=== PATIENT | male | born 1945 | race Caucasian/White ===

== ENCOUNTER 2017-02-11 17:34 | Inpatient (IN) | payer OTHER ==
[~2017-02-11] VITALS: Ht 182.8 cm; Wt 96.0 kg
--- NOTE | ~2017-02-11 | CON ---
[place], [place] REPORT OF CONSULTATION NAME: [facility]J [facility]UNG [facility] [id number] UNIT #: [id number] ROOM: 519 DOCTOR: SOLE PARKS MD BIRTHDATE: [birth year] DOS: 02/12/2017 REQUESTING PHYSICIAN: Dr. Villarreal. REASON FOR CONSULTATION: Chest pain. ASSESSMENT: 1. Current presentation with left side chest pain for the past 3 days. 2. Similar complaint in January of last year. 3. Coronary artery disease, status post bypass surgery in October 2015 along with aortic valve replacement. 4. Hypertension. 5. Hyperlipidemia. 6. Cardiomyopathy. 7. COPD. 8. History of tobacco abuse. The patient quit in October of last year. PLAN: 1. Cycle cardiac enzymes. 2. Add Imdur 60 mg once a day. 3. The patient can be discharged home with early followup in our clinic within 1-2 weeks. 4. Call for any change in symptoms and then a stress test is recommended. HISTORY AND PHYSICAL: The patient is a pleasant 71-year-old gentleman well known to our group, was seen recently with Dr. Carranza in January following his surgery of aortic valve replacement along with bypass surgery. Apparently, the patient has been having off and on chest pain, left-sided, for the past 3 days. The pain is sharp, occasionally dull, nonradiating. No associated nausea, vomiting or diaphoresis. It can reach 2-3/10. No worsening with activity. It lasted all day. The patient still has some pain medicines, took it and it improved the pain. Never had any symptomatic palpitation. No associated dizziness, lightheadedness or near syncope. Overall, has been doing well. The patient is under a lot of stress due to some family issues at home (patient's had been recently diagnosed with cancer). The patient sleeps on 1 pillow with no reported PND, orthopnea or pedal edema. No reported snoring. No fever, no chills, no night sweats, maintained good appetite, no weight loss. Overall, had been doing quite well prior to that. No significant complaint of chest pain since he was seen by Dr. Carranza in January of last year. PAST MEDICAL HISTORY: As detailed in my assessment. SOCIAL HISTORY: The patient denies any current tobacco, alcohol or illicit drug abuse. FAMILY HISTORY: Not applicable in view of patient's age. CURRENT MEDICATIONS: Vitamin D, Mobic, lisinopril, folic acid and aspirin. [place], [place] REPORT OF CONSULTATION NAME: PJ YEUNG UNIT #: [id number] ROOM: [facility] DOCTOR: SOLE PARKS MD BIRTHDATE: [birth year] ALLERGIES: The patient has no known drug allergies. REVIEW OF SYSTEMS: The patient denies any current headache, diplopia or blurry vision. No fever, no chills, no night sweats. No abdominal pain, no bright red blood per rectum, no tarry stools. The patient admits to joint pain, but no muscular pain. No anxiety, occasional depression. No polyuria, no polydipsia. No skin rash. Review of other systems has been negative. PHYSICAL EXAMINATION: GENERAL: The patient is alert, oriented x3, quite pleasant. VITAL SIGNS: Blood pressure 169/89, heart rate 60, respiratory rate of 20, temperature 97.8. NECK: Good upstroke. No bruit. HEART: S1, S2 with no rub. CHEST AND BACK: No deformities. LUNGS: Clear to auscultation. No wheezing, no rales. ABDOMEN: Obese, soft, nontender, present bowel sounds. LOWER EXTREMITIES: Mild edema with faint distal pulses. NEUROLOGIC: Grossly nonfocal. SKIN: No significant rash. LABORATORY DATA: White count 6.5, hemoglobin 14.2. Potassium is 4.4, creatinine 1.4. Hemoglobin A1c 5.9. Negative CPK-MB and troponin. SOLE PARKS MD CM:CONSTR:REPORT OF CONSULTATION [id number] 02/14/17 2000 interface
[2017-02-11 17:34] VITALS: BP 188/86
[~2017-02-11 17:34] MED LIST: ANAPROX DS550 MG PO; ASPIRIN CHEWABL81 MG PO; ATENOLOL50 MG PO; BACTRIM DS 8001 TA1 PO; CILOSTAZOL100 MG PO; CIPRO250 MG PO; COREG12.5 M1 PO; COREG6.25 MG PO; CRESTOR20 MG PO; DOXYCYCLINE100 M3 PO; FENOFIBRATE160 MG PO; HYDROCODONE W/1 TA1 PO; LASIX20 MG PO; LISINOPRIL10 M1 PO; LISINOPRIL10 MG PO; LISINOPRIL20 MG PO; MELOXICAM15 MG PO; MOTRIN800 MG PO; Metformin Hydr500 MG PO; NATURE'S BLEND F1 MG PO; NEXIUM40 MG PO; NITROSTAT0.4 MG SL; NORCO 7.5-3251 EACH PO; OMEPRAZOLE20 MG PO; PROTONIX40 MG PO; SEPTRA DS 800 M1 TAB PO; SIMVASTATIN40 MG PO; VITAMIN D50000 UNIT PO; ZOCOR40 MG PO
[2017-02-11 17:59] LABS: BASO % 0.5 % (0.0-1.0); EOS # 0.4 10*3/uL (0.0-0.4); EOS % 4.5 % (1.0-4.0); HEMATOCRIT 43.4 % (42.0-52.0); HEMOGLOBIN 14.7 g/dl (14.0-18.0); LYMPH # 2.1 10*3/uL (1.3-4.4); LYMPH % 26.6 % (27.0-41.0); MEAN CELL VOLUME 90.8 fl (80.0-94.0); MEAN CORPUSCULAR HGB 30.8 pg (27.0-31.0); MEAN CORPUSCULAR HGB CONC 33.9 g/dl (33.0-37.0); MEAN PLATELET VOLUME 10.7 fl (9.6-12.3); MONO # 0.8 10*3/uL (0.1-1.0); MONO % 10.7 % (3.0-9.0); NEUT # 4.5 10*3/uL (2.3-7.9); NEUT % 57.3 % (47.0-73.0); PLATELET COUNT AUTOMATED 187 10*3/uL (130-400); RED BLOOD COUNT 4.78 10*6/uL (4.50-5.90); RED CELL DISTRI WIDTH 13.6 % (0-14.5); WHITE BLOOD COUNT 7.9 10*3/uL (4.8-10.8)
[2017-02-11 18:15] LABS: ALBUMIN 3.9 gm/dl (3.1-4.5); BILIRUBIN, TOTAL 0.6 mg/dl (0.2-1.0); MAGNESIUM 2.1 mg/dL (1.5-2.1); POTASSIUM 4.3 mmol/L (3.5-5.1); TOTAL PROTEIN 7.6 gm/dL (6.4-8.2)
[2017-02-11 18:16] LABS: TROPONIN I 0.017 ng/ml (<0.045)
[2017-02-11 18:46] VITALS: BP 177/87
[2017-02-11] MEDS ORDERED: ASPIRIN81 M1 PO (19:00)
[2017-02-11] MEDS ORDERED: CARVEDILOL6.25 MG PO (19:01)
[2017-02-11] MEDS ORDERED: BREO ELLIPTA 11 EACH IH (19:01)
[2017-02-11] MEDS ORDERED: CILOSTAZOL100 MG PO (19:02)
[2017-02-11] MEDS ORDERED: FENOFIBRATE160 MG PO (19:02)
[2017-02-11] MEDS ORDERED: LISINOPRIL20 MG PO (19:03)
[2017-02-11] MEDS ORDERED: NATURE'S BLEND F1 MG PO (19:03)
[2017-02-11] MEDS ORDERED: MOBIC15 MG PO (19:04)
[2017-02-11] MEDS ORDERED: PANTOPRAZOLE SO40 MG PO (19:04)
[2017-02-11] MEDS ORDERED: METFORMIN500 MG PO (19:04)
[2017-02-11] MEDS ORDERED: VITAMIN D50000 I3 PO (19:05)
[2017-02-11] MEDS ORDERED: ZOCOR40 MG PO (19:05)
[2017-02-11 19:24] VITALS: BP 144/76
[2017-02-11 19:45] VITALS: BP 170/86
[2017-02-11 20:00] VITALS: BP 170/86
[2017-02-12] VITALS: BP 120/64
[2017-02-12 01:47] LABS: CKMB 1.6 ng/ml (0.5-3.6)
[2017-02-12 06:13] LABS: CKMB 1.5 ng/ml (0.5-3.6)
[2017-02-12 06:14] LABS: HEMATOCRIT 43.1 % (42.0-52.0); HEMOGLOBIN 14.2 g/dl (14.0-18.0); MEAN CELL VOLUME 91.5 fl (80.0-94.0); MEAN CORPUSCULAR HGB 30.1 pg (27.0-31.0); MEAN CORPUSCULAR HGB CONC 32.9 g/dl (33.0-37.0); MEAN PLATELET VOLUME 11.4 fl (9.6-12.3); PLATELET COUNT AUTOMATED 176 10*3/uL (130-400); RED BLOOD COUNT 4.71 10*6/uL (4.50-5.90); RED CELL DISTRI WIDTH 13.7 % (0-14.5); WHITE BLOOD COUNT 6.5 10*3/uL (4.8-10.8)
[2017-02-12 06:31] LABS: FREE T4 1.15 ng/dl (0.76-1.46); MAGNESIUM 2.1 mg/dL (1.5-2.1); POTASSIUM 4.4 mmol/L (3.5-5.1)
[2017-02-12 06:39] LABS: THYROID STIM HORMONE (HS) 0.827 uIU/ml (0.358-4.75)
[2017-02-12 06:40] LABS: PROTHROMBIN TIME 10.9 SECONDS (9.0-12.4)
[2017-02-12 06:51] LABS: EOSINOPHIL # 0.6 10*3/uL (0-0.4); EOSINOPHILS 9 % (1-4); LYMPHOCYTE # 2.1 10*3/uL (1.3-4.4); MONOCYTE # 0.3 10*3/uL (0.1-1.0); NEUTROPHIL # 3.4 10*3/uL (2.3-7.9); NEUTROPHILS 53 % (47-73); TOTAL CELLS COUNTED 100 #CELLS
[2017-02-12 06:52] LABS: PLATELET SUFFICIENCY NORMAL (NORMAL)
[2017-02-12 07:20] LABS: HEMOGLOBIN A1c 5.9 % (4.8-5.6)
[2017-02-12 07:27] LABS: VITAMIN D, 25-HYDROXY 21.2 ng/mL (30-100)
[2017-02-12 07:31] LABS: FOLIC ACID > 24.00 ng/mL (>5.38)
[2017-02-12 08:00] VITALS: BP 169/89
[2017-02-12 12:18] LABS: CKMB 1.4 ng/ml (0.5-3.6)
[2017-02-12] MEDS ORDERED: IMDUR SA60 M1 PO (14:42)
== END 2017-02-12 16:08 | disposition home or self-care (01) | DRG 683 ==
LOC: ED 17:34 → EDHOLD 18:40 → 5E 19:12
PROVIDERS: Emergency Medicine; Internal Medicine
DX: N17.0 Acute kidney failure with tubular necrosis (principal); I50.32 Chronic diastolic (congestive) heart failure; I11.0 Hypertensive heart disease with heart failure; E11.9 Type 2 diabetes mellitus without complications; R07.89 Other chest pain; I25.2 Old myocardial infarction; E55.9 Vitamin D deficiency, unspecified; J41.8 Mixed simple and mucopurulent chronic bronchitis; E78.5 Hyperlipidemia, unspecified; I25.10 Atherosclerotic heart disease of native coronary artery without angina pectoris; Z95.1 Presence of aortocoronary bypass graft; Z87.891 Personal history of nicotine dependence; Z82.3 Family history of stroke; Z83.3 Family history of diabetes mellitus; Z79.82 Long term (current) use of aspirin; Z95.2 Presence of prosthetic heart valve; Z79.899 Other long term (current) drug therapy; Z79.84 Long term (current) use of oral hypoglycemic drugs

== ENCOUNTER 2018-10-03 04:45 | Emergency (ER) | payer OTHER ==
[~2018-10-03] VITALS: Ht 182.8 cm; Wt 88.5 kg
[~2018-10-03 04:45] MED LIST changes: +ASPIRIN81 M1 PO; +BREO ELLIPTA 11 EACH IH; +CARVEDILOL6.25 MG PO; +CETIRIZINE HCL10 MG PO; +FLONASE ALLERG9.9 ML NAS; +GAVILAX8.5 GM PO; +HYDROCODONE-AC1 EAC2 PO; +IMDUR SA60 M1 PO; +METFORMIN500 MG PO; +MOBIC15 MG PO; +PANTOPRAZOLE SO40 MG PO; +SYMB160 INH; +VITAMIN D50000 I3 PO
[2018-10-03] MEDS ORDERED: PLAVIX75 M1 PO (04:55)
[2018-10-03] MEDS ORDERED: APLISOL5 TUB UNIT IC (04:56)
[2018-10-03] MEDS ORDERED: OMEPRAZOLE20 M2 PO (04:57)
[2018-10-03] MEDS ORDERED: AFLURIA 2045 MCG/010 IM (04:58)
[2018-10-03] MEDS ORDERED: PROAIR HFA8.5 GM INH (04:59)
[2018-10-03] MEDS ORDERED: ASPIRIN ADULT L81 M1 PO (04:59)
[2018-10-03] MEDS ORDERED: ISOSORBIDE MONO10 MG PO (04:59)
[2018-10-03] MEDS ORDERED: PEPTO-BISMOL262 MG PO (05:00)
[2018-10-03] MEDS ORDERED: PRAVACHOL40 MG PO (05:01)
[2018-10-03] MEDS ORDERED: CLARITIN10 MG PO (05:02)
[2018-10-03] MEDS ORDERED: TYLENOL WITH C1 EACH PO (05:02)
[2018-10-03 05:31] LABS: BASO # 0.1 10*3/uL (0.0-0.1); BASO % 0.9 % (0.0-1.0); EOS # 0.5 10*3/uL (0.0-0.4); EOS % 5.9 % (1.0-4.0); HEMATOCRIT 45.2 % (42.0-52.0); HEMOGLOBIN 15.1 g/dl (14.0-18.0); LYMPH # 1.4 10*3/uL (1.3-4.4); LYMPH % 15.7 % (27.0-41.0); MEAN CELL VOLUME 89.2 fl (80.0-94.0); MEAN CORPUSCULAR HGB 29.8 pg (27.0-31.0); MEAN CORPUSCULAR HGB CONC 33.4 g/dl (33.0-37.0); MEAN PLATELET VOLUME 10.4 fl (9.6-12.3); NEUT % 66.1 % (47.0-73.0); PLATELET COUNT AUTOMATED 305 10*3/uL (130-400); RED BLOOD COUNT 5.07 10*6/uL (4.50-5.90); RED CELL DISTRI WIDTH 13.3 % (0-14.5)
[2018-10-03 05:34] LABS: BILIRUBIN NEGATIVE (NEGATIVE); BLOOD NEGATIVE (NEGATIVE); CLARITY CLEAR (CLEAR); COLOR YELLOW (YELLOW); GLUCOSE NEGATIVE (NEGATIVE); KETONE NEGATIVE (NEGATIVE); LEUKO ESTERASE NEGATIVE (NEGATIVE); NITRITE NEGATIVE (NEGATIVE); PH 5.5 (5.0-9.0); SPECIFIC GRAVITY <= 1.005 (1.005-1.030); UROBILINOGEN 0.2 E.U./dl (0.2-1.0)
[2018-10-03 05:42] LABS: RBC 0-2 rbc/hpf (0-2)
[2018-10-03 05:51] LABS: ALKALINE PHOSPHATASE 64 U/L (45-117); BUN 20 mg/dl (7-24); CHLORIDE 103 mmol/L (98-107); POTASSIUM 4.3 mmol/L (3.5-5.1); SGOT/AST 24 IU/L (3-35); SGPT/ALT 15 U/L (12-78); SODIUM 137 mmol/L (136-145); TOTAL PROTEIN 7.4 gm/dL (6.4-8.2)
== END 2018-10-03 16:20 | disposition short-term general hospital (02) ==
LOC: ED 04:45
PROVIDERS: Student in an Organized Health Care Education/Training Program
DX: L03.116 Cellulitis of left lower limb (principal); I99.8 Other disorder of circulatory system; J44.9 Chronic obstructive pulmonary disease, unspecified; E78.5 Hyperlipidemia, unspecified; I11.0 Hypertensive heart disease with heart failure; I50.40 Unspecified combined systolic (congestive) and diastolic (congestive) heart failure; I25.10 Atherosclerotic heart disease of native coronary artery without angina pectoris; I25.2 Old myocardial infarction; E11.9 Type 2 diabetes mellitus without complications; Z79.899 Other long term (current) drug therapy; Z79.82 Long term (current) use of aspirin

== ENCOUNTER 2019-08-30 06:12 | Inpatient (IN) | payer OTHER ==
[2019-08-30] VITALS (10 sets, daily range): BP systolic 119–159; BP diastolic 60–82
[~2019-08-30] VITALS: Ht 182.8 cm; Wt 91.3 kg
[~2019-08-30 06:12] MED LIST changes: +AFLURIA 2045 MCG/010 IM; +APLISOL5 TUB UNIT IC; +ASPIRIN ADULT L81 M1 PO; +CLARITIN10 MG PO; +ISOSORBIDE MONO10 MG PO; +OMEPRAZOLE20 M2 PO; +PEPTO-BISMOL262 MG PO; +PLAVIX75 M1 PO; +PRAVACHOL40 MG PO; +PROAIR HFA8.5 GM INH; +TYLENOL WITH C1 EACH PO
--- NOTE | 2019-08-30 06:29 | NUR ---
PER PT TOOK 1 NITRO LAST NIGHT WHEN ONSET OF SYMPTOMS STARTED.
[2019-08-30 06:34] LABS: BASO # 0.1 10*3/uL (0.0-0.1); BASO % 1.1 % (0.0-1.0); EOS # 0.4 10*3/uL (0.0-0.4); EOS % 4.7 % (1.0-4.0); HEMATOCRIT 53.1 % (42.0-52.0); HEMOGLOBIN 17.1 g/dl (14.0-18.0); LYMPH # 2.1 10*3/uL (1.3-4.4); LYMPH % 26.3 % (27.0-41.0); MEAN CELL VOLUME 91.1 fl (80.0-94.0); MEAN CORPUSCULAR HGB 29.3 pg (27.0-31.0); MEAN CORPUSCULAR HGB CONC 32.2 g/dl (33.0-37.0); MEAN PLATELET VOLUME 10.9 fl (9.6-12.3); MONO # 0.8 10*3/uL (0.1-1.0); MONO % 9.8 % (3.0-9.0); NEUT # 4.7 10*3/uL (2.3-7.9); NEUT % 57.9 % (47.0-73.0); PLATELET COUNT AUTOMATED 185 10*3/uL (130-400); RED BLOOD COUNT 5.83 10*6/uL (4.50-5.90); RED CELL DISTRI WIDTH 13.3 % (0-14.5); WHITE BLOOD COUNT 8.1 10*3/uL (4.8-10.8)
[2019-08-30 06:44] LABS: ACT PARTIAL THROMBO TIME 27.3 SECONDS (20.0-32.1)
[2019-08-30 06:52] LABS: ALBUMIN 3.9 gm/dl (3.1-4.5); ALKALINE PHOSPHATASE 51 U/L (45-117); BUN 15 mg/dl (7-24); CHLORIDE 107 mmol/L (98-107); CREATININE 1.35 mg/dL (0.70-1.30); POTASSIUM 4.2 mmol/L (3.5-5.1); SGOT/AST 24 IU/L (3-35); SGPT/ALT 23 U/L (12-78); SODIUM 140 mmol/L (136-145); TOTAL PROTEIN 7.7 gm/dL (6.4-8.2)
[2019-08-30 07:17] LABS: TROPONIN I < 0.015 ng/ml (<0.045)
--- NOTE | 2019-08-30 07:37 | NUR ---
AMBULATED TO BATHROOM, TOLERATED WELL.
--- NOTE | 2019-08-30 08:21 | NUR ---
VISITING WITH FAMILY, NO COMPLAINTS.
--- NOTE | 2019-08-30 09:25 | NUR ---
A 74, admitted to , under the services of Dr. NESSA BERRY,SLADE Hanson with a diagnosis of CHEST PAIN. Chief complaint is CHEST PAIN. Patient arrived via bed from ER. Monitor applied. Initial assessment completed. Vital signs taken and recorded. DR. NESSA BERRY,SLADE Hanson notified of admission to the unit. Orders received. See assessment for past medical history, medications and allergies. Patient and/or family oriented to unit. [facility] visitation policy reviewed. Clothing/patient valuable form completed. ANNIE LOPEZ
--- NOTE | 2019-08-30 10:00 | NUR ---
DR SZYMANSKI CALLED AND ORDERS RECEIVED. HOME MEDS CONTINUED PER VERBAL ORDERS. MED REC UPDATED PER PAPERWORK GIVEN BY [facility].
[2019-08-30] MEDS ORDERED: CARVEDILOL6.25 MG PO (10:53)
[2019-08-30] MEDS ORDERED: AMLODIPINE BES2.5 MG PO (10:53)
[2019-08-30] MEDS ORDERED: IMDUR SA30 MG PO (10:53)
[2019-08-30] MEDS ORDERED: CETIRIZINE HYDR10 MG PO (10:54)
[2019-08-30] MEDS ORDERED: NITROGLYCERIN0.4 MG SL (10:54)
[2019-08-30] MEDS ORDERED: ELIQUIS2.5 M1 PO (11:34)
[2019-08-30] MEDS ORDERED: HYDROCODONE-AC1 EAC2 PO (11:35)
--- NOTE | 2019-08-30 13:09 | NUR ---
CONSULT CALLED TO DR ANDERSEN. NO NEW ORDERS RECEIVED AT THIS TIME. PHYSICIAN STATES THAT HE WILL BE IN TO SEE PATIENT LATER TODAY.
--- NOTE | 2019-08-30 18:20 | NUR ---
PT DENIES NEEDING ANYTHING AT THIS TIME. RESPIRATIONS EASY AND UNLABORED ON ROOM AIR. NO S/S OF DISTRESS NOTED. ALL NEEDS ARE MET. IV PATENT, DRESSING C/D/I, FLUSHING WITH GOOD BLOOD RETURN. ALL SAFETY MEASURES IN PLACE. CALL LIGHT IN REACH.
[2019-08-31] VITALS: BP 120/76
--- NOTE | 2019-08-31 07:52 | NUR ---
24 HR chart check completed.
[2019-08-31 08:00] VITALS: BP 132/83
--- NOTE | 2019-08-31 08:30 | NUR ---
RESTING IN BED WITH NO ACUTE DISTRESS NOTED. RESPIRATIONS EASY. LUNGS DIMINISHED WITH PB RALES. PULSE OX 94% RA. CALL LIGHT WITHIN REACH. NO VOICED COMPLAINTS
--- NOTE | 2019-08-31 09:00 | NUR ---
REQUESTED AND RECEIVED NORCO PER PRN ORDER FOR COMPLAINTS OF LEFT HIP PAIN RATING A 9. CALL LIGHT WITHIN REACH. WILL MONITOR FOR EFFECTIVENESS
[2019-08-31] MEDS ORDERED: PANTOPRAZOLE SO40 MG PO (10:43)
--- NOTE | 2019-08-31 11:00 | NUR ---
VISITING WITH FAMILY. STATES RELIEF FROM EARLIER MEDS. NO DISTRESS NOTED. CALL LIGHT WITHIN REACH. NO FURTHER VOICED COMPLAINTS
[2019-08-31 12:00] VITALS: BP 133/68
[2019-08-31 16:00] VITALS: BP 135/77
--- NOTE | 2019-08-31 16:00 | NUR ---
RESTING IN BED WATCHING TV. NO DISTRESS NOTED. RESPIRATIONS EASY. CALL LIGHT WITHIN REACH. NO VOICED COMPLAINTS
[2019-08-31 20:00] VITALS: BP 155/84
--- NOTE | 2019-08-31 20:00 | NUR ---
PATIENT ASSESSMENT COMPLETED AT THIS TIME WITHOUT INCIDENT. PATIENT DENIES ANY CHEST PAIN/PRESSURE AT THIS TIME. PATIENT MEDICATED FOR CHRONIC LEFT HIP AND SHOULDER PAIN AT THIS TIME, PATIENT RATES PAIN 8/10 AT THIS TIME, MEDICATED WITH NORCO. PATIENT AMBULATORY IN ROOM AND HALLWAY WITH ASSISTANCE OF CANE. CALL LIGHT WITHIN REACH, WILL CONTINUE TO MONITOR.
--- NOTE | 2019-08-31 20:30 | NUR ---
NORCO EFFECTIVE AT THIS TIME PER PATIENT
--- NOTE | 2019-08-31 22:25 | NUR ---
24 HOUR CHART CHECK COMPLETED
[2019-09-01] VITALS: BP 131/81
[2019-09-01 08:00] VITALS: BP 130/70
--- NOTE | 2019-09-01 10:07 | NUR ---
10:00 MEDS TO BE GIVEN AT A LATER TIME. PT NPO FOR STRESS TEST
--- NOTE | 2019-09-01 11:17 | NUR ---
PT. UNAVAILABLE FOR DA OFF FLOOR FOR PROCEDURE-STRESS TEST
[2019-09-01 12:00] VITALS: BP 146/82
--- NOTE | 2019-09-01 13:03 | NUR ---
INFORMED CONSENT SIGNED FOR LEXISCAN STRESS TEST WITH DR. SZYMANSKI. RESTING EKG NSR WITH PVC'S, HR 65, BP 124/70. PULSE OX 97% AND LUNGS CLEAR BUT DEMINISHED. COMPLETED ONE MINUTED OF LEXISCAN PROTOCOL RECEIVING LEXISCAN 0.4MG OVER 10 SECONDS. PVC'S NOTED WITH NO ST CHANGES. PT C/O BEING SOB. LAST RECOVERY HR 62, BP 118/66. WAITING NUCLEAR SCANNING IN STABLE CONDITION.
--- NOTE | 2019-09-01 15:00 | NUR ---
Casket Trimmer in to talk to patient. Patient states lives at home with alone. There are few steps in the home. Physician: [facility] Home health services: none Patient's level of ADLs: INDEPENDENT Patient has working utilities: all working DME: none Follow-up physician's appointment after d/c: patient prefers to make his own follow up appointment Does patient want to access PORTAL?: n Discharge plan discussed with patient he lives at home alone, he states he is independent in adls and ambulation, he states he will return home when medically stable and denies any home needs. AMRITA RIZO
--- NOTE | 2019-09-01 17:29 | NUR ---
[facility] Discharge instructions reviewed with patient/family. Patient receptive and verbalizes understanding. Follow-up care arranged. Written instructions given to patient/family. MANOLO LOPEZ
== END 2019-09-01 17:29 | disposition home or self-care (01) | DRG 191 ==
LOC: ED 06:12 → 4E 07:36 → EDHOLD 07:36 → 4E 09:05
PROVIDERS: Emergency Medicine; ADMIT Internal Medicine
PROC: 3E073KZ Introduction of Other Diagnostic Substance into Coronary Artery, Percutaneous Approach (ICD-10-PCS; principal; 2019-09-01)
PROC: 4A02XM4 Measurement of Cardiac Total Activity, External Approach (ICD-10-PCS; principal; 2019-09-01)
DX: J44.1 Chronic obstructive pulmonary disease with (acute) exacerbation (principal); I50.42 Chronic combined systolic (congestive) and diastolic (congestive) heart failure; I13.0 Hypertensive heart and chronic kidney disease with heart failure and stage 1 through stage 4 chronic kidney disease, or unspecified chronic kidney disease; R07.2 Precordial pain; I25.10 Atherosclerotic heart disease of native coronary artery without angina pectoris; E78.2 Mixed hyperlipidemia; E11.51 Type 2 diabetes mellitus with diabetic peripheral angiopathy without gangrene; N18.9 Chronic kidney disease, unspecified; E11.22 Type 2 diabetes mellitus with diabetic chronic kidney disease; I65.29 Occlusion and stenosis of unspecified carotid artery; G89.29 Other chronic pain; M47.896 Other spondylosis, lumbar region; J30.1 Allergic rhinitis due to pollen; I25.2 Old myocardial infarction; Z95.1 Presence of aortocoronary bypass graft; Z95.2 Presence of prosthetic heart valve; Z89.422 Acquired absence of other left toe(s); Z87.891 Personal history of nicotine dependence; Z82.3 Family history of stroke; Z83.3 Family history of diabetes mellitus

== ENCOUNTER → 2019-09-02 | Outpatient (CLI) | payer OTHER ==
[~2019-09-02] MED LIST changes: +AMLODIPINE BES2.5 MG PO; +CETIRIZINE HYDR10 MG PO; +ELIQUIS2.5 M1 PO; +IMDUR SA30 MG PO; +NITROGLYCERIN0.4 MG SL
== END | disposition home or self-care (01) ==
LOC: CARD 08:42
DX: I65.21 Occlusion and stenosis of right carotid artery (principal); Z95.3 Presence of xenogenic heart valve; Z79.899 Other long term (current) drug therapy

== ENCOUNTER → 2019-09-18 | Outpatient (CLI) | payer OTHER ==
[2019-09-18 10:37] LABS: CREATININE 1.46 mg/dL (0.70-1.30)
== END | disposition home or self-care (01) ==
LOC: LAB 09:26 → CT 10:00
PROVIDERS: Internal Medicine Cardiovascular Disease
DX: I65.23 Occlusion and stenosis of bilateral carotid arteries (principal); I25.10 Atherosclerotic heart disease of native coronary artery without angina pectoris

== ENCOUNTER → 2021-01-10 | Outpatient (CLI) | payer OTHER | END | disposition home or self-care (01) | LOC: RAD 13:30 | PROVIDERS: ATTEND Orthopaedic Surgery | DX: M19.011 Primary osteoarthritis, right shoulder (principal) ==

== ENCOUNTER 2021-05-27 11:20 | Inpatient (IN) | payer OTHER ==
[~2021-05-27] VITALS: Ht 182.8 cm; Wt 98.4 kg
[2021-05-27 11:23] VITALS: BP 151/95
[2021-05-27 11:59] LABS: ABG BASE EXCESS -2.6 mmol/L (-2.0-2.0); ARTERIAL BLOOD GAS PH 7.421 (7.35-7.45); ARTERIAL BLOOD GAS PO2 100.8 (80-90)
[2021-05-27 12:10] LABS: BASO # 0.1 10*3/uL (0.0-0.1); BASO % 0.6 % (0.0-1.0); EOS # 0.5 10*3/uL (0.0-0.4); HEMATOCRIT 47.2 % (42.0-52.0); LYMPH # 1.8 10*3/uL (1.3-4.4); LYMPH % 17.8 % (27.0-41.0); MEAN CELL VOLUME 95.2 fl (80.0-94.0); MEAN CORPUSCULAR HGB 29.6 pg (27.0-31.0); MEAN CORPUSCULAR HGB CONC 31.1 g/dl (33.0-37.0); MEAN PLATELET VOLUME 10.6 fl (9.6-12.3); MONO # 0.9 10*3/uL (0.1-1.0); MONO % 8.7 % (3.0-9.0); NEUT % 67.6 % (47.0-73.0); PLATELET COUNT AUTOMATED 225 10*3/uL (130-400); RED BLOOD COUNT 4.96 10*6/uL (4.50-5.90); RED CELL DISTRI WIDTH 16.2 % (0-14.5); WHITE BLOOD COUNT 10.3 10*3/uL (4.8-10.8)
[2021-05-27] MEDS ORDERED: OFEV100 MG PO (12:15)
[2021-05-27 12:27] LABS: ALBUMIN 3.3 gm/dl (3.1-4.5); ALKALINE PHOSPHATASE 59 U/L (45-117); BUN 19 mg/dl (7-24); CHLORIDE 109 mmol/L (98-107); CREATININE 1.09 mg/dL (0.70-1.30); POTASSIUM 4.3 mmol/L (3.5-5.1); SGOT/AST 18 IU/L (3-35); SGPT/ALT 20 U/L (12-78); SODIUM 139 mmol/L (136-145); TOTAL PROTEIN 7.6 gm/dL (6.4-8.2)
[2021-05-27 12:30] LABS: TROPONIN I < 0.015 ng/ml (<0.045)
[2021-05-27 21:35] VITALS: BP 133/72
[2021-05-28] VITALS (7 sets, daily range): BP systolic 103–144; BP diastolic 57–83
[2021-05-28 05:21] LABS: ALBUMIN 3.4 gm/dl (3.1-4.5); ALKALINE PHOSPHATASE 63 U/L (45-117); BUN 22 mg/dl (7-24); CHLORIDE 104 mmol/L (98-107); CHOLESTEROL 151 mg/dL (<200); CREATININE 1.25 mg/dL (0.70-1.30); LDL CHOLESTEROL 105 mg/dL (9-159); POTASSIUM 4.2 mmol/L (3.5-5.1); SGOT/AST 17 IU/L (3-35); SGPT/ALT 20 U/L (12-78); SODIUM 137 mmol/L (136-145); TOTAL PROTEIN 7.9 gm/dL (6.4-8.2); TRIGLYCERIDES 72 mg/dl (<150)
[2021-05-28 06:14] LABS: BASO % 0.2 % (0.0-1.0); HEMATOCRIT 48.1 % (42.0-52.0); LYMPH # 1.1 10*3/uL (1.3-4.4); MEAN CELL VOLUME 93.8 fl (80.0-94.0); MEAN CORPUSCULAR HGB 29.4 pg (27.0-31.0); MEAN CORPUSCULAR HGB CONC 31.4 g/dl (33.0-37.0); MEAN PLATELET VOLUME 10.8 fl (9.6-12.3); MONO % 0.3 % (3.0-9.0); NEUT # 5.1 10*3/uL (2.3-7.9); NEUT % 81.2 % (47.0-73.0); PLATELET COUNT AUTOMATED 243 10*3/uL (130-400); RED BLOOD COUNT 5.13 10*6/uL (4.50-5.90); RED CELL DISTRI WIDTH 15.9 % (0-14.5); WHITE BLOOD COUNT 6.3 10*3/uL (4.8-10.8)
[2021-05-29 05:13] LABS: BUN 29 mg/dl (7-24); CHLORIDE 105 mmol/L (98-107); CREATININE 1.26 mg/dL (0.70-1.30); POTASSIUM 4.8 mmol/L (3.5-5.1); SODIUM 138 mmol/L (136-145)
[2021-05-29 06:07] LABS: BASO % 0.1 % (0.0-1.0); HEMATOCRIT 46.4 % (42.0-52.0); LYMPH # 1.8 10*3/uL (1.3-4.4); LYMPH % 12.1 % (27.0-41.0); MEAN CELL VOLUME 93.2 fl (80.0-94.0); MEAN CORPUSCULAR HGB 29.5 pg (27.0-31.0); MEAN CORPUSCULAR HGB CONC 31.7 g/dl (33.0-37.0); MEAN PLATELET VOLUME 11.1 fl (9.6-12.3); MONO # 0.5 10*3/uL (0.1-1.0); MONO % 3.6 % (3.0-9.0); NEUT # 12.6 10*3/uL (2.3-7.9); NEUT % 82.6 % (47.0-73.0); PLATELET COUNT AUTOMATED 260 10*3/uL (130-400); RED BLOOD COUNT 4.98 10*6/uL (4.50-5.90); RED CELL DISTRI WIDTH 15.9 % (0-14.5); WHITE BLOOD COUNT 15.2 10*3/uL (4.8-10.8)
[2021-05-29 19:55] VITALS: BP 125/74
[2021-05-30 04:19] LABS: BASO % 0.1 % (0.0-1.0); HEMATOCRIT 45.6 % (42.0-52.0); LYMPH % 14.2 % (27.0-41.0); MEAN CELL VOLUME 91.9 fl (80.0-94.0); MEAN CORPUSCULAR HGB 29.4 pg (27.0-31.0); MEAN PLATELET VOLUME 10.9 fl (9.6-12.3); MONO # 1.1 10*3/uL (0.1-1.0); MONO % 7.8 % (3.0-9.0); NEUT % 77.3 % (47.0-73.0); PLATELET COUNT AUTOMATED 244 10*3/uL (130-400); RED BLOOD COUNT 4.96 10*6/uL (4.50-5.90); RED CELL DISTRI WIDTH 15.6 % (0-14.5); WHITE BLOOD COUNT 14.3 10*3/uL (4.8-10.8)
[2021-05-30 04:31] LABS: BUN 28 mg/dl (7-24); CHLORIDE 106 mmol/L (98-107); CREATININE 1.14 mg/dL (0.70-1.30); POTASSIUM 4.4 mmol/L (3.5-5.1); SODIUM 138 mmol/L (136-145)
[2021-05-30] MEDS ORDERED: LASIX40 MG PO ×2 (15:16)
[2021-05-30] MEDS ORDERED: PREDNISONE10 MG PO ×2 (15:16)
[2021-06-09] MEDS ORDERED: FUROSEMIDE40 MG PO (05:32)
== END 2021-05-30 15:47 | disposition home or self-care (01) | DRG 291 ==
LOC: ED 11:20 → EDHOLD 14:01
PROVIDERS: Family Medicine; Hospitalist; Internal Medicine; ADMIT Emergency Medicine; ATTEND Emergency Medicine
PROC: 4A02XM4 Measurement of Cardiac Total Activity, External Approach (ICD-10-PCS; principal; 2021-05-30)
PROC: 3E073KZ Introduction of Other Diagnostic Substance into Coronary Artery, Percutaneous Approach (ICD-10-PCS; 2021-05-30)
DX: I11.0 Hypertensive heart disease with heart failure (principal); J96.21 Acute and chronic respiratory failure with hypoxia; I50.21 Acute systolic (congestive) heart failure; J84.9 Interstitial pulmonary disease, unspecified; J45.901 Unspecified asthma with (acute) exacerbation; J84.112 Idiopathic pulmonary fibrosis; I99.8 Other disorder of circulatory system; D75.89 Other specified diseases of blood and blood-forming organs; E87.8 Other disorders of electrolyte and fluid balance, not elsewhere classified; R73.9 Hyperglycemia, unspecified; J44.9 Chronic obstructive pulmonary disease, unspecified; E78.5 Hyperlipidemia, unspecified; I25.10 Atherosclerotic heart disease of native coronary artery without angina pectoris; M54.5 Low back pain; G89.29 Other chronic pain; Z95.1 Presence of aortocoronary bypass graft; Z88.8 Allergy status to other drugs, medicaments and biological substances; Z79.82 Long term (current) use of aspirin; Z79.1 Long term (current) use of non-steroidal anti-inflammatories (NSAID); Z79.899 Other long term (current) drug therapy